=== PATIENT | female | born 1950 | race American Indian/Alaskan Native ===

== ENCOUNTER 2017-12-24 16:51 | Inpatient (IN) | payer OTHER ==
--- NOTE | 2017-12-24 16:59 | PDOC ---
Rapid Medical Evaluation Time Seen by Provider: 12/24/17 16:55 Medical Evaluation: Allergies Allergy/AdvReac Type Severity Reaction Status Date / Time No Known Drug Allergies Allergy Verified 12/24/17 16:54 12/24/17 16:55 I have performed a brief in-person evaluation of this patient. The patient presents with a chief complaint of: Weakness/dizziness w/ n/v, dry mouth and weight loss x 2 weeks. Seen by PMD last week and dx w/ new onset DM, HbA1c 11% per pt. Sent to ED for BG of 500 in office today. Other pmhx are HTN, HLD, ortho surgeries Pertinent physical exam findings:Appears mildly lethargic at triage and tachy I have ordered the following:labs The patient will proceed to the ED for further evaluation 12/24/17 17:05 Discharge Disposition - Diagnosis Hyperglycemia - Referrals - Patient Instructions - Post Discharge Activity
[2017-12-24 17:42] LABS: HEMOGLOBIN 14.1 GM/dL (10.7-15.3); MEAN CELL VOLUME 90.9 fl (80-96); MEAN PLT VOLUME 11.2 fl (7.5-11.1); PLATELET COUNT 389 K/MM3 (134-434); RBC 4.84 M/mm3 (3.60-5.2); RDW 13.3 % (11.6-15.6); WHITE BLOOD COUNT 21.2 K/mm3 (4.0-10.0)
--- NOTE | 2017-12-24 17:50 | PDOC ---
History of Present Illness - General Chief Complaint: Blood Sugar Problem Stated Complaint: BLOOD SUGAR Time Seen by Provider: 12/24/17 16:55 - History of Present Illness Initial Comments: 12/24/17 18:07 67 year old ronald with a hx of HTN and uterine bleeding presents to the hospital after being sent by PCP for blood sugar > 500. She reports that today was the day she was diagnosed with diabetes. Reports ~2 weeks of polyuria, polydipsia. Additionally reports lethargy, sleeping often, and 2 days of nausea/ vomiting. Vomited 5x this morning, last episode at 5am. Patient reports feeling nauseous but hungry. Denies chest pain, shortness of breath, diarrhea, fevers, chills, abdominal pain. Allergies: none Surgical Hx: Pancreatic cyst removed (with part of spleen) Smoke: never Alcohol: never Past History - Past Medical History Allergies/Adverse Reactions: Allergies Allergy/AdvReac Type Severity Reaction Status Date / Time No Known Drug Allergies Allergy Verified 12/24/17 16:54 Home Medications: Ambulatory Orders Aspirin [ASA -] 81 mg PO DAILY 12/05/14 Biotin 1 mg PO DAILY 12/05/14 Calcium 500 mg PO DAILY 12/05/14 Enalapril Maleate [Vasotec -] 20 mg PO DAILY 12/05/14 Fluticasone Prop 0.05% Nasal [Flonase -] 1 - 2 spray NS DAILY PRN 12/05/14 Loratadine [Claritin -] 10 mg PO DAILY 12/05/14 [place]-3 Fatty Acids [Fish Oil] 300 mg PO DAILY 12/05/14 Simvastatin [Zocor -] 20 mg PO HS 12/05/14 Vitamin B Complex 1 each PO DAILY 12/05/14 Ibuprofen [Motrin -] 600 mg PO TID PRN #21 tablet 12/06/14 CVA: Yes (TIA 5 YRS AGO) COPD: No Diabetes: Yes HTN: Yes Hypercholesterolemia: Yes - Surgical History Orthopedic Surgery: Yes (ARTHROSCOPY HOLLY,LEFT SHOULDER SX ROTATOR CUFF) - Suicide/Smoking/Psychosocial Hx Smoking History: Former smoker Have you smoked in the past 12 months: No Information on smoking cessation initiated: No Hx Alcohol Use: No Drug/Substance Use Hx: No Substance Use Type: None Hx Substance Use Treatment: No Review of Systems - Review of Systems Able to Perform ROS?: Yes Constitutional: No: Chills, Fever HEENTM: No: Throat Pain Respiratory: No: Shortness of Breath, Wheezing Cardiac (ROS): No: Lightheadedness, Palpitations ABD/GI: Yes: Constipated, Nausea, Vomiting. No: Diarrhea, Rectal Bleeding Endocrine: Yes: Increased Thirst, Increased Urine *Physical Exam - Vital Signs Last Vital Signs Temp Pulse Resp BP Pulse Ox 98.2 F 110 H 19 155/97 96 12/24/17 16:54 12/24/17 16:54 12/24/17 16:54 12/24/17 16:54 12/24/17 16:54 - Physical Exam Comments: 12/24/17 18:10 GENERAL: A&Ox3, no acute distress, sleepy EYES: PERRLA, EOMI ENT: Dry mucus membranes NECK: No JVD LUNGS: CTA, no wheezes HEART: RRR, no murmurs ABDOMEN: Soft, nontender, BS present MUSCULOSKELETAL: No CVA Tenderness EXTREMITIES: 2+ pulses, no edema. NEUROLOGICAL: Cranial nerves II-XII intact. ED Treatment Course - LABORATORY CBC & Chemistry Diagram: 12/24/17 17:25 12/24/17 17:25 Medical Decision Making - Medical Decision Making 12/24/17 18:11 67 yo female hx HTN, uterine bleeding sent by PCP for newly diagnosed diabetes -cbc, cmp, UA, mag, urine acetone, ekg 12/24/17 18:23 -glucose 496 -anion gap 17 -white count 21.2 likely due to hyperglycemia and ketonemia. -awaiting urine acetone CBC, BMP 12/24/17 17:25 12/24/17 17:25 12/24/17 18:44 -acetone elevated, patient likely in mild DKA -will admit obs to hospitalist - repeat glucose 385 after 5 units *DC/Admit/Observation/Transfer Diagnosis at time of Disposition: Hyperglycemia - Discharge Dispostion Condition at time of disposition: Stable Decision to Admit order: Yes - Referrals Referrals: Alonso Gotti [Primary Care Provider] - - Patient Instructions - Post Discharge Activity
[2017-12-24 17:53] LABS: ALBUMIN 3.5 g/dl (3.4-5.0); ANION GAP 17 (8-16); BLOOD UREA NITROGEN 20 mg/dL (7-18); CHLORIDE 94 mmol/L (98-107); CO2 18 mmol/L (21-32); CREATININE 0.9 mg/dL (0.55-1.02); POTASSIUM 4.9 mmol/L (3.5-5.1); SGOT/AST 34 U/L (15-37); SGPT/ALT 34 U/L (12-78); SODIUM 129 mmol/L (136-145)
[2017-12-24 17:55] LABS: ALK PHOS 119 U/L (45-117); BILIRUBIN,TOTAL 0.8 mg/dL (0.2-1.0); TOT PROT 7.7 g/dl (6.4-8.2)
[2017-12-24 18:18] LABS: GLUCOSE,RANDOM 496 mg/dL (74-106)
[2017-12-24] MEDS ORDERED: SODIUM CHLORIDE 1,000 ML IV STA ×2 (18:30→21:15)
[2017-12-24 18:47] LABS: MACROCYTOSIS 1+; OVALOCYTE 1+; PLATELET ESTIMATE ADEQUATE
--- NOTE | 2017-12-24 18:56 | PDOC ---
Attending Attestation - Resident Resident Name: BlayneEbbeto - ED Attending Attestation I have performed the following: I have examined & evaluated the patient, The case was reviewed & discussed with the resident, I agree w/resident's findings & plan, Exceptions are as noted - HPI HPI: 12/24/17 18:53 67y F hx of htn, borderline DM, of fibroids was following up with your PMD for lab results, was found to have bgm in the 500s and sent to the ED for evaluation. pt was written for insulin by PMD. Pt notes the past few weeks she has felt generally weak and tired. Denies any associated cp, sob, palpitations, fever/chills, n/v, abd pain, back pain, dysuria, hematuria, diarrhea. She does endorse some urinary frequency. pts exam: general: well appearing, NAD HEENT: Dry mMM abd soft nontender card: slightly tachy, no murmers ddx: hyperglycemia vs dka will ck labs ua will reassess - Physicial Exam PE: 12/25/17 03:11 see abve - Medical Decision Making labs cw with weak dka will admit for further mangemtn will treat with boluses inf insulin Heart Score/ECG Review - History History: Highly suspicious - ECG Impressions Comment:: 12/24/17 20:07 Twelve-lead EKG was performed and reviewed by me. There is normal sinus rhythm with a rate of [address] changes suggestive of AMI Impression: sinus tachycardic
[2017-12-24] MEDS ORDERED: ONDANSETRON 4 MG/2 ML VIAL IVPUSH ONE (18:57)
[2017-12-24] MEDS ORDERED: Insulin (LOG) Aspart 100 UNITS/ML VIAL SQ ONE (19:01)
[2017-12-24] MEDS ORDERED: INSULIN (NOVOLOG) ASPART 100 UNITS/ML 10ML VIAL ONE (19:06)
[2017-12-24] MEDS ORDERED: ONDANSETRON 4 MG/2 ML VIAL ONE (19:06)
[2017-12-24 19:43] LABS: URINE APPEARANCE CLEAR; URINE BILIRUBIN NEGATIVE (<2.0 mg/dL); URINE COLOR STRAW; URINE GLUCOSE (UA) 3+ (NEGATIVE); URINE KETONE 1+ (NEGATIVE); URINE LEUK ESTERASE NEGATIVE (NEGATIVE); URINE NITRITE NEGATIVE (NEGATIVE); URINE PROTEIN NEGATIVE (NEGATIVE); URINE UROBILINOGEN NEGATIVE mg/dL (0.2-1.0)
--- NOTE | 2017-12-24 21:17 | PN ---
Teaching Attending Note Name of Resident: Bebeto Gutierrez ATTENDING PHYSICIAN STATEMENT I saw and evaluated the patient. I reviewed the resident's note and discussed the case with the resident. I agree with the resident's findings and plan as documented. SUBJECTIVE: Patient is 67 year old woman with a history of HTN and postmenopausal bleeding sent by PCP to the ER for blood sugar > 500. She reports that today was the day she was diagnosed with diabetes. Reports ~2 weeks of polyuria, polydipsia. Additionally reports lethargy, sleeping often, and 2 days of nausea/vomiting. Vomited 5x this morning, last episode at 5 am. Patient reports feeling nauseous but hungry. Denies chest pain, shortness of breath, diarrhea, fevers, chills, abdominal pain. 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 OBJECTIVE: Alert and in no acute distress Vital Signs Period Temp Pulse Resp BP Sys/Brown Pulse Ox Last 24 Hr 98.2 F 110 19 155/97 96 HEENT: No Jaundice, eye redness or discharge, PERRLA, EOMI. Normocephalic, atraumatic. External ears are normal and hearing is grossly intact. No nasal discharge. Neck: Supple, nontender. No palpable adenopathy or thyromegaly. No JVD Chest: Good effort. Clear to auscultation and percussion. Heart: Regular. No S3, rub or murmur Abdomen: Not distended, soft, mild upper abdominal tenderness; no HSM. No rebound or guarding. Normoactive bowel sounds. Ext: Peripheral pulses intact. No leg edema. Skin: Warm and dry. No petechiae, rash or ecchymosis. Neuro: Alert. Oriented x3. CN 2-12 grossly intact. Sensation grossly intact in all four extremities and DTR are symmetric. Current Medications Generic Name Dose Route Start Last Admin Trade Name Freq PRN Reason Stop Dose Admin Sodium Chloride 1,000 mls @ 1,000 mls/hr 12/24/17 21:15 12/24/17 21:18 Normal Saline - IV 12/24/17 22:14 1,000 mls/hr ASDIR STA Administration Home Medications Medication Instructions Recorded Aspirin [ASA -] 81 mg PO DAILY 12/05/14 Biotin 1 mg PO DAILY 12/05/14 Calcium 500 mg PO DAILY 12/05/14 Enalapril Maleate [Vasotec -] 20 mg PO DAILY 12/05/14 Fluticasone Prop 0.05% Nasal 1 - 2 spray NS DAILY PRN 12/05/14 [Flonase -] Loratadine [Claritin -] 10 mg PO DAILY 12/05/14 [place]-3 Fatty Acids [Fish Oil] 300 mg PO DAILY 12/05/14 Simvastatin [Zocor -] 20 mg PO HS 12/05/14 Vitamin B Complex 1 each PO DAILY 12/05/14 Ibuprofen [Motrin -] 600 mg PO TID PRN #21 tablet 12/06/14 Abnormal Lab Results 12/24/17 12/24/17 12/24/17 17:25 17:25 17:25 WBC 21.2 H MPV 11.2 H D Neutrophils % (Manual) 90.0 H Lymphocytes % (Manual) 5.0 L Monocytes % (Manual) 3 L Sodium 129 L Chloride 94 L Carbon Dioxide 18 L Anion Gap 17 H BUN 20 H Random Glucose 496 H* Alkaline Phosphatase 119 H Urine Glucose (UA) Urine Ketones Acetone, Qual Positive moderate 2+ H 12/24/17 19:25 WBC MPV Neutrophils % (Manual) Lymphocytes % (Manual) Monocytes % (Manual) Sodium Chloride Carbon Dioxide Anion Gap BUN Random Glucose Alkaline Phosphatase Urine Glucose (UA) 3+ H Urine Ketones 1+ H Acetone, Qual ASSESSMENT AND PLAN: 1. New onset DM with hyperglycemic hyperosmolar ketosis - No obvious precipitating factors and denies family history of DM and says she has recently lost 15 lbs - without trying. Will repeat BMP, give her initial dose of IV insulin, continue with sliding scale insulin, IV normal saline and also give her KCL. Monitor BMP to trend metabolic acidosis and initiate intensive diabetes patient education. Importance of foot care and eye care stressed. 2. Hypertension - Will give Vasotec 20 mg bid and add a diuretic later. Importance of excellent BP control and low salt diet stressed. 3. Recurrent constipation and Abdominal pain - Will get abdominal sonogram to evaluate the hepatobiliary tract in view of leukocytosis - though the latter may be post-splenectomy leukocytosis. There is no other evidence of infection despite a left shift - will monitor her closely - no indication for antibiotics at this time. Miralax and Senna for constipation and outpatient colonoscopy to investigate recurrent constipation and weight loss. 4. Hyponatremia - Likely due to hyperglycemia. Will likely improve as hyperglycemia is corrected. 5. DVT prophylaxis - Heparin 5000u sq tid. 6. Advance directives - Full code
[2017-12-25] MEDS ORDERED: INSULIN REGULAR HUMAN 100 UNITS/ML *VIAL IVPUSH ONE (00:01)
[2017-12-25] MEDS ORDERED: SODIUM CHLORIDE 1,000 ML IV SCH (00:15)
[2017-12-25] MEDS ORDERED: PATIENT'S OWN MEDICATION (NON-FORMULARY) (Enalapril Maleate [Vasotec -] 20 MG) PO SCH (00:15)
--- NOTE | 2017-12-25 00:15 | HP ---
CHIEF COMPLAINT: Nausea and vomiting; sent by PCP glucose of 500 PCP: Dr. Owens HISTORY OF PRESENT ILLNESS: 67yo F with history of HTN/HLD, TIA (5 years ago), and pre-diabetes who presents from her PCP's office after a BGM showed 500 for her glucose. Pt reports 2 weeks ago she started having polyuria and polydipsia. Within the past day she experienced nausea and 5 episodes of NB/NB vomiting. When she saw Dr. Owens this morning she was diagnosed with Diabetes Mellitus with an A1c of 11%. Pt currently feels markedly improved and denies any n/v/f/c, headache, SOB, CP/ discomfort, palpitations, and dysuria. 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 Family History: Allergies No Known Drug Allergies Allergy (Verified 12/24/17 16:54) HOME MEDICATIONS: Home Medications Medication Instructions Recorded Aspirin [ASA -] 81 mg PO DAILY 12/05/14 Biotin 1 mg PO DAILY 12/05/14 Calcium 500 mg PO DAILY 12/05/14 Enalapril Maleate [Vasotec -] 20 mg PO DAILY 12/05/14 Fluticasone Prop 0.05% Nasal 1 - 2 spray NS DAILY PRN 12/05/14 [Flonase -] Loratadine [Claritin -] 10 mg PO DAILY 12/05/14 [place]-3 Fatty Acids [Fish Oil] 300 mg PO DAILY 12/05/14 Simvastatin [Zocor -] 20 mg PO HS 12/05/14 Vitamin B Complex 1 each PO DAILY 12/05/14 Ibuprofen [Motrin -] 600 mg PO TID PRN #21 tablet 12/06/14 REVIEW OF SYSTEMS CONSTITUTIONAL: Present: weight change Absent: fever, chills, diaphoresis, generalized weakness, malaise, loss of appetite, HEENT: Absent: rhinorrhea, nasal congestion, throat pain, throat swelling, difficulty swallowing, mouth swelling, ear pain, eye pain, visual changes CARDIOVASCULAR: Absent: chest pain, syncope, palpitations, irregular heart rate, lightheadedness , peripheral edema RESPIRATORY: Absent: cough, shortness of breath, dyspnea with exertion, orthopnea, wheezing, stridor, hemoptysis GASTROINTESTINAL: Present: nausea, vomiting, abdominal pain Absent: Abdominal distension, diarrhea, constipation, melena, hematochezia GENITOURINARY: Present: Polyuria Absent: dysuria, urgency, hesitancy, hematuria, flank pain, genital pain MUSCULOSKELETAL: Absent: myalgia, arthralgia, joint swelling, back pain, neck pain SKIN: Absent: rash, itching, pallor HEMATOLOGIC/IMMUNOLOGIC: Absent: easy bleeding, easy bruising, lymphadenopathy, frequent infections ENDOCRINE: Present: Polydipsia Absent: unexplained weight gain, unexplained weight loss, heat intolerance, cold intolerance NEUROLOGIC: Present: Paresthesias of lower extremities Absent: headache, focal weakness, dizziness, unsteady gait, seizure, mental status changes, bladder or bowel incontinence PSYCHIATRIC: Absent: anxiety, depression, suicidal or homicidal ideation, hallucinations. PHYSICAL EXAMINATION Vital Signs - 24 hr 12/24/17 16:54 Temperature 98.2 F Pulse Rate 110 H Respiratory 19 Rate Blood Pressure 155/97 O2 Sat by Pulse 96 Oximetry (%) GENERAL: NAD, Awake, alert, and fully oriented HEAD: NC/AT EYES: EOMI, sclera anicteric, no scleral injections, Ophthalmoscopic exam w/o any papilledema, hemorrhage of vessels noted. ENT: Normal structures of oropharynx, MMM NECK: No JVD, soft, no lymphadenopathy LUNGS: CTA bilaterally. No wheezes, and no crackles. No accessory muscle use. Room air 96% HEART: Tachycardic with regular rhythm, normal S1 and S2 without murmur ABDOMEN: Soft, nondistended, normoactive BS, slight RUQ tenderness, no guarding , negative Luna's, no rebound, no hepatomegaly via percussion. MUSCULOSKELETAL: No CVA tenderness. EXTREMITIES: 2+ DP pulses, warm, well-perfused. No peripheral edema. NEUROLOGICAL: mathematical engineering technician II-XII intact. Strength 5/5 throughout all oconnell. Sensation to dull sensation still remains intact in all oconnell. Normal speech. Normal gait. PSYCHIATRIC: Cooperative. Good eye contact. Appropriate mood and affect. SKIN: Warm, dry, no rashes or lesions noted Laboratory Results - last 24 hr 12/24/17 12/24/17 12/24/17 17:25 17:25 17:25 WBC 21.2 H RBC 4.84 Hgb 14.1 Hct 44.0 MCV 90.9 MCH 29.0 MCHC 32.0 RDW 13.3 Plt Count 389 MPV 11.2 H D Absolute Neuts (auto) 18.4 Total Counted 100 Neutrophils % No Result Required. Neutrophils % (Manual) 90.0 H Band Neutrophils % 1.0 Lymphocytes % No Result Required. Lymphocytes % (Manual) 5.0 L Monocytes % (Manual) 3 L Basophils % (Manual) 1.0 Nucleated RBC % 0 Differential Comment Man diff performed Platelet Estimate Adequate Platelet Comment Polychromasia 1+ Poikilocytosis 1+ Macrocytosis 1+ Ovalocytes 1+ Sodium 129 L Potassium 4.9 Chloride 94 L Carbon Dioxide 18 L Anion Gap 17 H BUN 20 H Creatinine 0.9 Creat Clearance w eGFR > 60 POC Glucometer Random Glucose 496 H* Calcium 9.0 Total Bilirubin 0.8 AST 34 ALT 34 Alkaline Phosphatase 119 H Total Protein 7.7 Albumin 3.5 Urine Color Urine Appearance Urine pH Ur Specific [place] Urine Protein Urine Glucose (UA) Urine Ketones Urine Blood Urine Nitrite Urine Bilirubin Urine Urobilinogen Ur Leukocyte Esterase Acetone, Qual Positive moderate 2+ H 12/24/17 12/24/17 19:25 20:19 WBC RBC Hgb Hct MCV MCH MCHC RDW Plt Count MPV Absolute Neuts (auto) Total Counted Neutrophils % Neutrophils % (Manual) Band Neutrophils % Lymphocytes % Lymphocytes % (Manual) Monocytes % (Manual) Basophils % (Manual) Nucleated RBC % Differential Comment Platelet Estimate Platelet Comment Polychromasia Poikilocytosis Macrocytosis Ovalocytes Sodium Potassium Chloride Carbon Dioxide Anion Gap BUN Creatinine Creat Clearance w eGFR POC Glucometer [phone] Random Glucose Calcium Total Bilirubin AST ALT Alkaline Phosphatase Total Protein Albumin Urine Color Straw Urine Appearance Clear Urine pH 5.0 D Ur Specific [place] 1.030 Urine Protein Negative Urine Glucose (UA) 3+ H Urine Ketones 1+ H Urine Blood Negative Urine Nitrite Negative Urine Bilirubin Negative Urine Urobilinogen Negative Ur Leukocyte Esterase Negative Acetone, Qual ASSESSMENT/PLAN: 67yo F with history of HTN, HLD, and TIA 5 years ago who presents with new onset DM found to be in a mild hyperglycemic acidosis 1) Mild DKA --Not all criteria seen, however pt has an open anion gap 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 --Uncontrolled DM due to new diagnosis w/o any controlling agents --S/p Novolog 5U in ER --Insulin regular 6 U IV --Stat BMP now and in AM --BGM q1h with insulin being given up until morning --NS+10KCl @100cc/hr (s/p 1LNS) 2) HTN --Most likely due to either uncontrolled on one agent vs. acute state --Increase home Vasotec to 20mg BID (first dose now) --If still elevated in morning can add HCTZ 12.5mg daily --Monitor BP 3) Leukocytosis --Most likely additive causes with leukemoid reaction and possible infection --Bands noted; left-shift noted --RUQ US ordered given tenderness in this area --Monitor for fevers 4) Hyponatremia --2/2 to hyperglycemic state --Corrected is 135 --Fluids as above 5) HLD --Continue home simvastatin 20mg HS 6) New Onset DM --A1c 11% --Informed pt that twice yearly eye examination and podiatric evaluation are advised --Instruct on Insulin injections --Will need to give glucometer, test strips, alcohol pads upon discharge FEN: Fluids: NS+10mEq KCl @ 100cc/hr Electrolyte abnormalities: Hyponatremia as above Nutrition: diabetic diet PPX: DVT - Heparin 5000 U SQ GI - Not indicated currently Dispo: Admit M/S Case discussed with Dr. Judah Gutierrez, DO - IM PGY-1 Visit type - Emergency Visit Emergency Visit: Yes ED Registration Date: 12/25/17 Care time: The patient presented to the Emergency Department on the above date and was hospitalized for further evaluation of their emergent condition. - New Patient This patient is new to me today: Yes Date on this admission: 12/25/17 - Critical Care Critical Care patient: No Hospitalist Screening - Colonoscopy Questionnaire Colonoscopy Questionnaire: Colonoscopy Questionnaire - Patient: 50 - 75 years old and never had a screening colonoscopy: Unknown History of colon or rectal polyps, or CA: Unknown History of IBD, Crohn's disease or UC: Unknown History of abdominal radiation therapy as a child: Unknown - Relative: 1 with colon or rectal CA, or polyps at age 60 or younger: Unknown Colon or rectal CA diagnosed at age 45 or younger: Unknown Multiple relatives with colon or rectal CA: Unknown - Outcome: Screening Result: Negative Screen
[2017-12-25] MEDS ORDERED: SODIUM CHLORIDE 1,000 ML with POTASSIUM CHLORIDE 10 MEQ IVPB SCH (02:00)
[2017-12-25 03:19] LABS: ANION GAP 12 (8-16); BLOOD UREA NITROGEN 16 mg/dL (7-18); CALCIUM 7.9 mg/dL (8.5-10.1); CHLORIDE 102 mmol/L (98-107); CO2 22 mmol/L (21-32); CREATININE 0.6 mg/dL (0.55-1.02); SODIUM 136 mmol/L (136-145)
[2017-12-25 03:20] LABS: GLUCOSE,RANDOM 330 mg/dL (74-106)
[2017-12-25] MEDS: INSULIN SLIDING SCALE (NOVOLOG) 1 VIAL SQ SCH ×3 (06:14→16:46)
[2017-12-25] MEDS: HEPARIN NA (PORCINE) 5,000 UNITS/ML 1ML VIAL SQ SCH ×3 (06:15→21:28)
[2017-12-25] MEDS ORDERED: INSULIN SLIDING SCALE (NOVOLOG) 1 VIAL SQ SCH (07:00)
[2017-12-25 08:05] LABS: ANION GAP 12 (8-16); BLOOD UREA NITROGEN 15 mg/dL (7-18); CALCIUM 7.9 mg/dL (8.5-10.1); CHLORIDE 103 mmol/L (98-107); CO2 22 mmol/L (21-32); CREATININE 0.6 mg/dL (0.55-1.02); GLUCOSE,RANDOM 309 mg/dL (74-106); POTASSIUM 4.3 mmol/L (3.5-5.1); SODIUM 137 mmol/L (136-145)
[2017-12-25 09:25] LABS: HEMATOCRIT 36.9 % (32.4-45.2); HEMOGLOBIN 11.8 GM/dL (10.7-15.3); MCH 29.1 pg (25.7-33.7); MCHC 32.1 g/dl (32.0-36.0); MEAN CELL VOLUME 90.6 fl (80-96); MEAN PLT VOLUME 11.6 fl (7.5-11.1); PLATELET COUNT 321 K/MM3 (134-434); RBC 4.07 M/mm3 (3.60-5.2); RDW 13.3 % (11.6-15.6); WHITE BLOOD COUNT 12.5 K/mm3 (4.0-10.0)
[2017-12-25] MEDS: ENALAPRIL MALEATE 10 MG TABLET (FP) PO SCH ×2 (09:44→21:29)
--- NOTE | 2017-12-25 10:35 | PN ---
Physical Exam: SUBJECTIVE: Patient seen and examined Patient is c/o having constipation, OBJECTIVE: Vital Signs Temperature 98.1 F 12/25/17 06:18 Pulse Rate 92 H 12/25/17 06:18 Respiratory Rate 17 12/25/17 06:18 Blood Pressure 158/82 12/25/17 06:18 O2 Sat by Pulse Oximetry (%) 100 12/25/17 01:02 GENERAL: The patient is awake, alert, and fully oriented, in no acute distress. HEAD: Normal with no signs of trauma. EYES: PERRL, extraocular movements intact, sclera anicteric, conjunctiva clear. ENT: Ears normal, oropharynx clear without exudates, moist mucous membranes. NECK: Trachea midline, full range of motion, supple. LUNGS: Breath sounds equal, clear to auscultation bilaterally, no wheezes, no crackles, no accessory muscle use. HEART: Regular rate and rhythm, S1, S2 without murmur, rub or gallop. ABDOMEN: Soft, nontender, nondistended, normoactive bowel sounds, no guarding, no rebound, no hepatosplenomegaly, no masses. EXTREMITIES: 2+ pulses, warm, well-perfused, no edema. NEUROLOGICAL: Cranial nerves II through XII grossly intact. Normal speech, gait not observed. PSYCH: Normal mood, normal affect. SKIN: Warm, dry, normal turgor, no rashes or lesions noted CBCD WBC 12.5 K/mm3 (4.0-10.0) H 12/25/17 06:15 RBC 4.07 M/mm3 (3.60-5.2) 12/25/17 06:15 Hgb 11.8 GM/dL (10.7-15.3) 12/25/17 06:15 Hct 36.9 % (32.4-45.2) D 12/25/17 06:15 MCV 90.6 fl (80-96) 12/25/17 06:15 MCHC 32.1 g/dl (32.0-36.0) 12/25/17 06:15 RDW 13.3 % (11.6-15.6) 12/25/17 06:15 Plt Count 321 K/MM3 (134-434) 12/25/17 06:15 MPV 11.6 fl (7.5-11.1) H 12/25/17 06:15 CMP Sodium 137 mmol/L (136-145) 12/25/17 06:15 Potassium 4.3 mmol/L (3.5-5.1) 12/25/17 06:15 Chloride 103 mmol/L (98-107) 12/25/17 06:15 Carbon Dioxide 22 mmol/L (21-32) 12/25/17 06:15 Anion Gap 12 (8-16) 12/25/17 06:15 BUN 15 mg/dL (7-18) 12/25/17 06:15 Creatinine 0.6 mg/dL (0.55-1.02) 12/25/17 06:15 Creat Clearance w eGFR > 60 (>60) 12/25/17 06:15 Random Glucose 309 mg/dL (74-106) H* 12/25/17 06:15 Calcium 7.9 mg/dL (8.5-10.1) L 12/25/17 06:15 Total Bilirubin 0.8 mg/dL (0.2-1.0) 12/24/17 17:25 AST 34 U/L (15-37) 12/24/17 17:25 ALT 34 U/L (12-78) 12/24/17 17:25 Alkaline Phosphatase 119 U/L (45-117) H 12/24/17 17:25 Total Protein 7.7 g/dl (6.4-8.2) 12/24/17 17:25 Albumin 3.5 g/dl (3.4-5.0) 12/24/17 17:25 Current Medications Generic Name Dose Route Start Last Admin Trade Name [place] PRN Reason Stop Dose Admin Enalapril Maleate 20 mg 12/25/17 02:00 12/25/17 09:44 Vasotec - PO 20 mg BID KODAK Administration Heparin Sodium (Porcine) 5,000 unit 12/25/17 06:00 12/25/17 06:15 Heparin - SQ 5,000 unit TID KODAK Administration Potassium Chloride 10 meq/ 1,005 mls @ 100 mls/hr 12/25/17 02:00 12/25/17 03: 13 Sodium Chloride IVPB 100 mls/hr ASDIR KODAK Administration Insulin Aspart 1 vial 12/25/17 07:00 12/25/17 06:14 Novolog Vial Sliding Scale - SQ 6 units ACHS KODAK Administration Protocol Home Medications Medication Instructions Recorded Aspirin [ASA -] 81 mg PO DAILY 12/05/14 Biotin 1 mg PO DAILY 12/05/14 Calcium 500 mg PO DAILY 12/05/14 Enalapril Maleate [Vasotec -] 20 mg PO DAILY 12/05/14 Fluticasone Prop 0.05% Nasal 1 - 2 spray NS DAILY PRN 12/05/14 [Flonase -] Loratadine [Claritin -] 10 mg PO DAILY 12/05/14 [place]-3 Fatty Acids [Fish Oil] 300 mg PO DAILY 12/05/14 Simvastatin [Zocor -] 20 mg PO HS 12/05/14 Vitamin B Complex 1 each PO DAILY 12/05/14 Ibuprofen [Motrin -] 600 mg PO TID PRN #21 tablet 12/06/14 ASSESSMENT/PLAN: 67yo F with history of HTN, HLD, and TIA 5 years ago who presents with new onset DM found to be in a mild hyperglycemic acidosis # s/p DKA (patient is no longer in DKA) improved on consulted, on Levemir and SS, check Hemoglobin A1c # HTN continue Vasotec #Acute PsuedoHyponatremia improved , gap is closed # HLD continue home simvastatin 20mg HS DVT Px: Heparin sq Visit type - Emergency Visit Emergency Visit: Yes ED Registration Date: 12/25/17 Care time: The patient presented to the Emergency Department on the above date and was hospitalized for further evaluation of their emergent condition. - New Patient This patient is new to me today: Yes Date on this admission: 12/25/17 - Critical Care Critical Care patient: No - Discharge Referral Referred to [facility] Med [facility] No
[2017-12-25] MEDS ORDERED: ACETAMINOPHEN 325 MG TABLET (FP) PO PRN (11:17)
[2017-12-25] MEDS ORDERED: GLYCERIN 1 RECTAL SUPPOSITORY, ADULT PR ONE (11:18)
[2017-12-25] MEDS: DOCUSATE SODIUM 100 MG CAPSULE (FP) PO SCH ×2 (11:59→21:26)
[2017-12-25 12:49] LABS: MAGNESIUM 1.8 mg/dL (1.8-2.4); PHOSPHOROUS 2.7 mg/dL (2.5-4.9)
[2017-12-25] MEDS: POTASSIUM CHLORIDE 10 MEQ in SODIUM CHLORIDE 1,000 ML IVPB SCH (14:50)
--- NOTE | 2017-12-25 15:00 | CONSULT ---
Consult Consult Specialty:: Endocrinology Referred by:: Dr Franklin Reason for Consultation:: DKA - History of Present Illness Chief Complaint: Hyperglycemia History of Present Illness: This is a 67 y/o F with history of HTN/HLD, TIA (5 years ago), and pre-diabetes who presented to ED from her PCP's office after a BGM showed 500. Pt c/o Wt loss of [id number] lbs in the last month and polyuria,polydipsia and nocturia for the last 2 weeks.. Within the past day she experienced nausea and 5 episodes of NB/NB vomiting. When she saw Dr. Owens this morning she was diagnosed with Diabetes Mellitus with an A1c of 11%. In the hospital pt found to be hyperglycemic with CO2 of 18, A Gap of 17 and moderate Ketones in the urine. Pt was treated with Insulin with improvement in syptoms and resolution of acidosis. Pt currently feels much beter and denies any complaints. - History Source History Provided By: Patient, Medical Record - Alcohol/Substance Use Hx Alcohol Use: No - Smoking History Smoking history: Former smoker Have you smoked in the past 12 months: No Home Medications - Allergies Allergies/Adverse Reactions: Allergies Allergy/AdvReac Type Severity Reaction Status Date / Time No Known Drug Allergies Allergy Verified 12/24/17 16:54 - Home Medications Home Medications: Ambulatory Orders Aspirin [ASA -] 81 mg PO DAILY 12/05/14 Biotin 1 mg PO DAILY 12/05/14 Calcium 500 mg PO DAILY 12/05/14 Enalapril Maleate [Vasotec -] 20 mg PO DAILY 12/05/14 Fluticasone Prop 0.05% Nasal [Flonase -] 1 - 2 spray NS DAILY PRN 12/05/14 Loratadine [Claritin -] 10 mg PO DAILY 12/05/14 Swatara-3 Fatty Acids [Fish Oil] 300 mg PO DAILY 12/05/14 Simvastatin [Zocor -] 20 mg PO HS 12/05/14 Vitamin B Complex 1 each PO DAILY 12/05/14 Ibuprofen [Motrin -] 600 mg PO TID PRN #21 tablet 12/06/14 Family Disease History - Family Disease History Other Family History: No family h/o DM Review of Systems - Review of Systems Constitutional: reports: No Symptoms Eyes: reports: No Symptoms HENT: reports: No Symptoms Neck: reports: No Symptoms Cardiovascular: reports: No Symptoms Respiratory: reports: No Symptoms Gastrointestinal: reports: No Symptoms Genitourinary: reports: No Symptoms Musculoskeletal: reports: No Symptoms Integumentary: reports: No Symptoms Neurological: reports: No Symptoms Endocrine: reports: No Symptoms Physical Exam Vital Signs: Vital Signs Temperature 98.1 F 12/25/17 13:42 Pulse Rate 93 H 12/25/17 13:42 Respiratory Rate 18 12/25/17 13:42 Blood Pressure 135/71 12/25/17 13:42 O2 Sat by Pulse Oximetry (%) 95 12/25/17 09:00 Constitutional: Yes: No Distress, Calm Eyes: Yes: Conjunctiva Clear, EOM Intact HENT: Yes: Atraumatic, Normocephalic Neck: Yes: Supple, Trachea Midline Cardiovascular: Yes: Regular Rate and Rhythm Respiratory: Yes: Regular, CTA Bilaterally Gastrointestinal: Yes: Normal Bowel Sounds, Soft Musculoskeletal: Yes: WNL Extremities: Yes: WNL Edema: No Neurological: Yes: Alert, Oriented Labs: CBC, BMP 12/25/17 06:15 12/25/17 06:15 Imaging - Results Chest X-ray: Report Reviewed Ultrasound: Report Reviewed Assessment/Plan AP: New Onset DM Mild DKA Diet exercise discussed Diabetes education done NUtrition consult BGM QACHS Levemir 12 units stat and daily Novolg coverage ACHS As pt presented with acidosis, will need to do w/u to determine if she is type 1 or 2 . Should be discharged on Insulin and decision on as to if Insulin may be discontinue will be made after results of w/u if available. The same discussed with pt. Will f/u
[2017-12-25] MEDS ORDERED: INSULIN (LEVEMIR) 100 UNITS/ML UNITS SQ ONE ×2 (15:05→17:34)
[2017-12-25] MEDS ORDERED: INSULIN (NOVOLOG) ASPART 100 UNITS/ML 10ML VIAL ONE ×2 (17:35→20:30)
[2017-12-25] MEDS ORDERED: PT OWN MED DRAWER 7, Y5N ONE (21:25)
[2017-12-25] MEDS: POLYETHYLENE GLYCOL 3350 119 GM BTL PO SCH (21:28)
[2017-12-25] MEDS ORDERED: NAPROXEN 500 MG TABLET (FP) PO ONE (22:00)
[2017-12-25] MEDS ORDERED: Insulin (LOG) Aspart 100 UNITS/ML VIAL SQ SCH (22:00)
[2017-12-26] MEDS: POTASSIUM CHLORIDE 10 MEQ in SODIUM CHLORIDE 1,000 ML IVPB SCH ×2 (01:55)
[2017-12-26] MEDS: INSULIN SLIDING SCALE (NOVOLOG) 1 VIAL SQ SCH ×2 (06:35→11:53)
[2017-12-26] MEDS: HEPARIN NA (PORCINE) 5,000 UNITS/ML 1ML VIAL SQ SCH (06:45)
[2017-12-26] MEDS ORDERED: INSULIN (NOVOLOG) ASPART 100 UNITS/ML 10ML VIAL ONE ×2 (06:46→11:51)
[2017-12-26] MEDS ORDERED: INSULIN (LEVEMIR) 100 UNITS/ML UNITS SQ SCH (07:00)
[2017-12-26 08:51] LABS: EOS % 2.8 % (0-4.5); HEMATOCRIT 33.7 % (32.4-45.2); HEMOGLOBIN 11.2 GM/dL (10.7-15.3); LYMPH % 42.1 % (8-40); MCH 29.8 pg (25.7-33.7); MCHC 33.2 g/dl (32.0-36.0); MEAN CELL VOLUME 89.9 fl (80-96); MEAN PLT VOLUME 11.1 fl (7.5-11.1); MONO % 9.6 % (3.8-10.2); NEUT % 44.5 % (42.8-82.8); PLATELET COUNT 294 K/MM3 (134-434); RBC 3.75 M/mm3 (3.60-5.2); RDW 13.6 % (11.6-15.6); WHITE BLOOD COUNT 9.5 K/mm3 (4.0-10.0)
[2017-12-26 09:38] LABS: MAGNESIUM 1.7 mg/dL (1.8-2.4); PHOSPHOROUS 2.4 mg/dL (2.5-4.9)
[2017-12-26] MEDS: ENALAPRIL MALEATE 10 MG TABLET (FP) PO SCH (10:28)
[2017-12-26] MEDS: DOCUSATE SODIUM 100 MG CAPSULE (FP) PO SCH (10:29)
[2017-12-26] MEDS: POLYETHYLENE GLYCOL 3350 119 GM BTL PO SCH (10:29)
[2017-12-26 10:35] LABS: ANION GAP 10 (8-16); BLOOD UREA NITROGEN 9 mg/dl (7-18); CALCIUM 7.9 mg/dl (8.4-10.2); CHLORIDE 108 mmol/L (98-107); CO2 22 mmol/L (22-28); CREATININE 0.5 mg/dl (0.6-1.3); GLUCOSE,RANDOM 229 mg/dl (74-106); SODIUM 140 mmol/L (136-145)
[2017-12-26 10:36] LABS: ALBUMIN 2.7 g/dl (3.5-5.0); ALK PHOS 94 U/L (32-92); BILIRUBIN,TOTAL 0.6 mg/dl (0.2-1.0); SGOT/AST 14 U/L (10-42); SGPT/ALT 20 U/L (10-40); TOT PROT 5.5 g/dl (6.4-8.3)
[2017-12-26] MEDS ORDERED: NAPH,MB-DB/K PH,MBDB POWDER PACKET PO ONE (11:09)
[2017-12-26] MEDS ORDERED: MAGNESIUM OXIDE 400 MG TABLET (FP) PO ONE (11:09)
[2017-12-26] MEDS ORDERED: SODIUM PHOSPHATE/NA BIPHOS 133 ML ENEMA PR ONE (12:02)
--- NOTE | 2017-12-26 12:03 | DS ---
Addendum entered and electronically signed by Gordo Urena, RESIDENT 12/26/17 12:38: instructions Follow up with your PCP Dr Gupta. Follow up with it quality assurance analyst Dr. Taylor Gutierrez with in one week. Call his office to make appointment. Take insulin Glargine 12 unit in evening Take Novalog insulin 6 unit with meal. we had sent your prescription for insulin, glucometer to your [facility] pharmacy in [place] [address] Nurse have taught you how to use insulin. Check your blood sugar three times a day and make a log of it. present log to your PCP or it quality assurance analyst it will help them to adjust your insulin and medicines. Eat a diet as explained by firearms instructor to you. For now we had stopped your insulin lispro and Tablet metformin. Follow up with your pcp and it quality assurance analyst for that if they want to restart it. Take all other medicines as you were taking it before. You need to have annual eye exam. You need to have regular follow up with industrial gas servicer supervisor. Take all the medicines as you were taking it before. Original Note: Physical Exam: SUBJECTIVE: Patient seen and examined OBJECTIVE: Vital Signs Period Temp Pulse Resp BP Sys/Brown Pulse Ox Last 24 Hr 97.0 F-98.1 F 62-93 18-20 109-144/63-95 95-98 PHYSICAL EXAM GENERAL: NAD, Awake, alert, and fully oriented , ENT: Normal structures of oropharynx, MMM NECK: No JVD, soft, no lymphadenopathy LUNGS: CTA bilaterally. No wheezes, and no crackles. No accessory muscle use. HEART: Tachycardic with regular rhythm, normal S1 and S2 without murmur ABDOMEN: Soft, nondistended, normoactive BS, no guarding, MUSCULOSKELETAL: No CVA tenderness. EXTREMITIES: 2+ DP pulses, warm, well-perfused. No peripheral edema. NEUROLOGICAL: automatic packer operator II-XII intact. Strength 5/5 throughout all oconnell. normal gait, sensation to touct b/l lower limb normal PSYCHIATRIC: Cooperative. Good eye contact. Appropriate mood and affect. SKIN: Warm, dry,= LABS Laboratory Results - last 24 hr 12/25/17 12/25/17 12/25/17 02:00 12:02 16:44 WBC RBC Hgb Hct MCV MCH MCHC RDW Plt Count MPV Absolute Neuts (auto) Neutrophils % Lymphocytes % Monocytes % Eosinophils % Basophils % Nucleated RBC % Sodium Potassium Chloride Carbon Dioxide Anion Gap BUN Creatinine Creat Clearance w eGFR POC Glucometer 342 304 Random Glucose Hemoglobin A1c % Calcium Phosphorus 2.7 Magnesium 1.8 Total Bilirubin AST ALT Alkaline Phosphatase Total Protein Albumin TSH 12/25/17 12/26/17 12/26/17 21:19 06:13 07:00 WBC RBC Hgb Hct MCV MCH MCHC RDW Plt Count MPV Absolute Neuts (auto) Neutrophils % Lymphocytes % Monocytes % Eosinophils % Basophils % Nucleated RBC % Sodium 140 Potassium 4.0 Chloride 108 H Carbon Dioxide 22 Anion Gap 10 BUN 9 Creatinine 0.5 L Creat Clearance w eGFR > 60 POC Glucometer 344 251 Random Glucose 229 H Hemoglobin A1c % Calcium 7.9 L Phosphorus 2.4 L Magnesium 1.7 L Total Bilirubin 0.6 AST 14 ALT 20 Alkaline Phosphatase 94 H Total Protein 5.5 L Albumin 2.7 L TSH 1.28 12/26/17 12/26/17 07:00 07:00 WBC 9.5 RBC 3.75 Hgb 11.2 Hct 33.7 MCV 89.9 MCH 29.8 MCHC 33.2 RDW 13.6 Plt Count 294 MPV 11.1 Absolute Neuts (auto) 4.2 Neutrophils % 44.5 D Lymphocytes % 42.1 H D Monocytes % 9.6 Eosinophils % 2.8 Basophils % 1.0 Nucleated RBC % 0 Sodium Potassium Chloride Carbon Dioxide Anion Gap BUN Creatinine Creat Clearance w eGFR POC Glucometer Random Glucose Hemoglobin A1c % 11.4 H Calcium Phosphorus Magnesium Total Bilirubin AST ALT Alkaline Phosphatase Total Protein Albumin TSH HOSPITAL COURSE: 67 year old ronald with a hx of HTN and uterine bleeding presents to the hospital after being sent by PCP for blood sugar > 500. She reports that today was the day she was diagnosed with diabetes. Reports ~2 weeks of polyuria, polydipsia. Additionally reports lethargy, sleeping often, and 2 days of nausea/vomiting. Vomited 5x this morning, last episode at 5am. Patient reports feeling nauseous but hungry. Denies chest pain, shortness of breath, diarrhea, fevers, chills, abdominal pain. In hospital you are treated for hyperglycemia with dka. Insole Coverer was consulted and you were started on levemir 12 unit and novalog as sldiing scale. Hba1c is 11.4. You sugar levels improved with insulin. Mixer Operator was consulted to teach you about diabetic diet. Nausea, vomiting improved as sugar level improved . Now you are tolerating orally. you already have all the meds and glucometer in home as they were prescribed by your pcp. You are discharged in stable condition with instructions to follow up with your pcp and it quality assurance analyst with in one week. Instructions. Follow up with your PCP Dr Gupta. Follow up with it quality assurance analyst Dr. Taylor Gutierrez with in one week. Call his office to make appointment. Take insulin Glargine 12 unit in evening Take Novalog insulin 6 unit with meal. Nurse have taught you how to use insulin. Check your blood sugar three times a day and make a log of it. present log to your PCP or it quality assurance analyst it will help them to adjust your insulin and medicines. Eat a diet as explained by firearms instructor to you. You told us and showed in your phone that you have insulin glargine, novalog, lispro and metformin in home and you also have glucometer and strips as prescribed by your PCP. For now we had stopped your insulin lispro and Tablet metformin. Follow up with your pcp and it quality assurance analyst for that if they want to restart it. Take all other medicines as you were taking it before. You need to have annual eye exam. You need to have regular follow up with industrial gas servicer supervisor. Take all the medicines as you were taking it before. If you develop nausea, vomiting, blood sugar is high then contact your doctor or go to hospital. Date of Admission:12/25/17 Date of Discharge: 12/26/17 Minutes to complete discharge: 45 <Gordo Urena - Last Filed: 12/26/17 12:14> Physical Exam: Patient is comfortable with no acute distress. BS is better controlled now, patient will follow with , patient is being discharged with Lantus 12 units and Novolog 6 units Tid with meals, continue rest of meds. Diet exercise discussed Diabetes education done NUtrition consult BGM QACHS Lantus 12 units daily in the morning Novolog 6 units TID with meals As pt presented with acidosis, will need to do w/u to determine if she is type 1 or 2 . Discussed with patient the need to be on Insulin until w/u is completed. She should continue to take Insulin as prescribed to control blood sugar and prevent DKA. Pt to f/u with PCP and Endocrinology on discharge for further w/u and management. Vital Signs Temperature 98.5 F 12/26/17 14:58 Pulse Rate 85 12/26/17 14:58 Respiratory Rate 18 12/26/17 14:58 Blood Pressure 145/86 12/26/17 14:58 O2 Sat by Pulse Oximetry (%) 98 12/26/17 09:00 CBCD WBC 9.5 K/mm3 (4.0-10.0) 12/26/17 07:00 RBC 3.75 M/mm3 (3.60-5.2) 12/26/17 07:00 Hgb 11.2 GM/dL (10.7-15.3) 12/26/17 07:00 Hct 33.7 % (32.4-45.2) 12/26/17 07:00 MCV 89.9 fl (80-96) 12/26/17 07:00 MCHC 33.2 g/dl (32.0-36.0) 12/26/17 07:00 RDW 13.6 % (11.6-15.6) 12/26/17 07:00 Plt Count 294 K/MM3 (134-434) 12/26/17 07:00 MPV 11.1 fl (7.5-11.1) 12/26/17 07:00 CMP Sodium 140 mmol/L (136-145) 12/26/17 07:00 Potassium 4.0 mmol/L (3.5-5.1) 12/26/17 07:00 Chloride 108 mmol/L (98-107) H 12/26/17 07:00 Carbon Dioxide 22 mmol/L (22-28) 12/26/17 07:00 Anion Gap 10 (8-16) 12/26/17 07:00 BUN 9 mg/dl (7-18) 12/26/17 07:00 Creatinine 0.5 mg/dl (0.6-1.3) L 12/26/17 07:00 Creat Clearance w eGFR > 60 (>60) 12/26/17 07:00 Random Glucose 229 mg/dl (74-106) H 12/26/17 07:00 Calcium 7.9 mg/dl (8.4-10.2) L 12/26/17 07:00 Total Bilirubin 0.6 mg/dl (0.2-1.0) 12/26/17 07:00 AST 14 U/L (10-42) 12/26/17 07:00 ALT 20 U/L (10-40) 12/26/17 07:00 Alkaline Phosphatase 94 U/L (32-92) H 12/26/17 07:00 Total Protein 5.5 g/dl (6.4-8.3) L 12/26/17 07:00 Albumin 2.7 g/dl (3.5-5.0) L 12/26/17 07:00 Current Medications Generic Name Dose Route Start Last Admin Trade Name Freq PRN Reason Stop Dose Admin Acetaminophen 650 mg 12/25/17 11:17 12/25/17 11:59 Tylenol - PO 650 mg Q6H PRN Administration PAIN Docusate Sodium 100 mg 12/25/17 11:30 12/26/17 10:29 Colace - PO 100 mg BID KODAK Administration Enalapril Maleate 20 mg 12/25/17 02:00 12/26/17 10:28 Vasotec - PO 20 mg BID KODAK Administration Heparin Sodium (Porcine) 5,000 unit 12/25/17 06:00 12/26/17 06:45 Heparin - SQ Not Given TID [facility] Potassium Chloride 10 meq/ 1,005 mls @ 100 mls/hr 12/25/17 13:19 12/26/17 01: 55 Sodium Chloride IVPB 100 mls/hr Q10H KODAK Administration Insulin Aspart 0 units 12/25/17 22:00 12/25/17 21:29 Novolog SQ 4 units HS [facility] Administration Protocol Insulin Aspart 1 vial 12/25/17 16:30 12/26/17 11:53 Novolog Vial Sliding Scale - SQ 6 units TIDAC [facility] Administration Protocol Insulin Detemir 12 units 12/26/17 07:00 12/26/17 06:28 Levemir Vial SQ 12 units AM [facility] Administration Polyethylene Glycol 17 gm 12/25/17 22:00 12/26/17 10:29 Miralax (For Daily Use) - PO 17 gm BID [facility] Administration Home Medications Medication Instructions Recorded Aspirin [ASA -] 81 mg PO DAILY 12/05/14 Biotin 1 mg PO DAILY 12/05/14 Calcium 500 mg PO DAILY 12/05/14 Enalapril Maleate [Vasotec -] 20 mg PO DAILY 12/05/14 Loratadine [Claritin -] 10 mg PO DAILY 12/05/14 Powderly-3 Fatty Acids [Fish Oil] 300 mg PO DAILY 12/05/14 Simvastatin [Zocor -] 20 mg PO HS 12/05/14 Vitamin B Complex 1 each PO DAILY 12/05/14 Alcohol Antiseptic Pads [Alcohol 1 each TP TID #120 med..pad 12/26/17 Swabs] Docusate Sodium [Colace -] 100 mg PO BID #30 capsule 12/26/17 Insulin Aspart [Novolog Flexpen] 6 units SQ ACHS #1 insuln.pen 12/26/17 Insulin Glargine,Hum.rec.anlog 12 units SQ HS #1 ins 12/26/17 [Lantus Solostar PEN -] Lancets 1 each MC TID #120 each 12/26/17 Miscellaneous Medical Supply 1 each ASDIR #1 kit 12/26/17 [Glucometer Device] Miscellaneous Medical Supply 1 each ASDIR #1 box 12/26/17 [Glucometer Test Strips #100] Polyethylene Glycol 3350 [Miralax 17 gm PO BID #1 bottle 12/26/17 119 gm Btl -] Syringe and Needle,Insulin,1Ml 1 each MC TID #120 disp.syrin 12/26/17 [Insulin Syringe] <Aram Franklin - Last Filed: 12/26/17 15:05> Discharge Summary Reason For Visit: DIABETIC KETOACIDOSIS Current Active Problems Hyperglycemia (Acute) - Home Medications Comprehensive Discharge Medication List: Ambulatory Orders Aspirin [ASA -] 81 mg PO DAILY 12/05/14 Biotin 1 mg PO DAILY 12/05/14 Calcium 500 mg PO DAILY 12/05/14 Enalapril Maleate [Vasotec -] 20 mg PO DAILY 12/05/14 Loratadine [Claritin -] 10 mg PO DAILY 12/05/14 Powderly-3 Fatty Acids [Fish Oil] 300 mg PO DAILY 12/05/14 Simvastatin [Zocor -] 20 mg PO HS 12/05/14 Vitamin B Complex 1 each PO DAILY 12/05/14 Docusate Sodium [Colace -] 100 mg PO BID #30 capsule 12/26/17 Insulin Aspart [Novolog Flexpen] 6 units SQ ACHS 12/26/17 Insulin Glargine,Hum.rec.anlog [Lantus Solostar PEN -] 12 units SQ HS 12/26/17 Polyethylene Glycol 3350 [Miralax 119 gm Btl -] 17 gm PO BID #1 bottle 12/26/17 <Gordo Urena - Last Filed: 12/26/17 12:14> Current Active Problems Hyperglycemia (Acute) - Home Medications Comprehensive Discharge Medication List: Ambulatory Orders Aspirin [ASA -] 81 mg PO DAILY 12/05/14 Biotin 1 mg PO DAILY 12/05/14 Calcium 500 mg PO DAILY 12/05/14 Enalapril Maleate [Vasotec -] 20 mg PO DAILY 12/05/14 Loratadine [Claritin -] 10 mg PO DAILY 12/05/14 Powderly-3 Fatty Acids [Fish Oil] 300 mg PO DAILY 12/05/14 Simvastatin [Zocor -] 20 mg PO HS 12/05/14 Vitamin B Complex 1 each PO DAILY 12/05/14 Alcohol Antiseptic Pads [Alcohol Swabs] 1 each TP TID #120 med..pad 12/26/17 Docusate Sodium [Colace -] 100 mg PO BID #30 capsule 12/26/17 Insulin Aspart [Novolog Flexpen] 6 units SQ ACHS #1 insuln.pen 12/26/17 Insulin Glargine,Hum.rec.anlog [Lantus Solostar PEN -] 12 units SQ HS #1 ins Lancets 1 each MC TID #120 each 12/26/17 Miscellaneous Medical Supply [Glucometer Device] 1 each ASDIR #1 kit Miscellaneous Medical Supply [Glucometer Test Strips #100] 1 each ASDIR #1 box 12/26/17 Polyethylene Glycol 3350 [Miralax 119 gm Btl -] 17 gm PO BID #1 bottle 12/26/17 Syringe and Needle,Insulin,1Ml [Insulin Syringe] 1 each MC TID #120 disp.syrin 12/26/17 <Aram Franklin - Last Filed: 12/26/17 15:05> Condition: Stable - Instructions Diet, Activity, Other Instructions: Follow up with your PCP Dr Gupta. Follow up with it quality assurance analyst Dr. Taylor Gutierrez with in one week. Call his office to make appointment. Take insulin Glargine 12 unit in evening Take Novalog insulin 6 unit with meal. we had sent your prescription for insulin, glucometer to your [facility] pharmacy. Nurse have taught you how to use insulin. Check your blood sugar three times a day and make a log of it. present log to your PCP or it quality assurance analyst it will help them to adjust your insulin and medicines. Eat a diet as explained by firearms instructor to you. For now we had stopped your insulin lispro and Tablet metformin. Follow up with your pcp and it quality assurance analyst for that if they want to restart it. Take all other medicines as you were taking it before. You need to have annual eye exam. You need to have regular follow up with industrial gas servicer supervisor. Take all the medicines as you were taking it before. Hba1c 11.4 If you develop nausea, vomiting, blood sugar is high then contact your doctor or go to hospital. Referrals: Alonso Gotti [Primary Care Provider] - Brenad Hudson MD [Staff Physician] - 1 Week Disposition: HOME This patient is new to me today: Yes Date on this admission: 12/26/17 Emergency Visit: Yes ED Registration Date: 12/25/17 Care time: The patient presented to the Emergency Department on the above date and was hospitalized for further evaluation of their emergent condition. Critical Care patient: No - Discharge Referral Referred to [facility] Med P.C.: No <Gordo Urena - Last Filed: 12/26/17 12:14>
--- NOTE | 2017-12-26 12:29 | PN ---
Progress Note (short form) - Note Progress Note: Feels good Denies any complaints Vital Signs Period Temp Pulse Resp BP Sys/Brown Pulse Ox Last 24 Hr 97.0 F-98.1 F 62-93 18-20 109-144/63-95 95-98 PE: AOx3 Neck: Supple, No JVD HEENT: PERRL, EOMI Lungs: CTA CVS: S1S2 Abd: Benign Ext: No edema Neuro: No focal deficit CMP Sodium 140 mmol/L (136-145) 12/26/17 07:00 Potassium 4.0 mmol/L (3.5-5.1) 12/26/17 07:00 Chloride 108 mmol/L (98-107) H 12/26/17 07:00 Carbon Dioxide 22 mmol/L (22-28) 12/26/17 07:00 Anion Gap 10 (8-16) 12/26/17 07:00 BUN 9 mg/dl (7-18) 12/26/17 07:00 Creatinine 0.5 mg/dl (0.6-1.3) L 12/26/17 07:00 Creat Clearance w eGFR > 60 (>60) 12/26/17 07:00 POC Glucometer 269 UNITS (80-120) 12/26/17 11:49 Random Glucose 229 mg/dl (74-106) H 12/26/17 07:00 Hemoglobin A1c % 11.4 % (4.8-6.0) H 12/26/17 07:00 Calcium 7.9 mg/dl (8.4-10.2) L 12/26/17 07:00 Phosphorus 2.4 mg/dL (2.5-4.9) L 12/26/17 07:00 Magnesium 1.7 mg/dL (1.8-2.4) L 12/26/17 07:00 Total Bilirubin 0.6 mg/dl (0.2-1.0) 12/26/17 07:00 AST 14 U/L (10-42) 12/26/17 07:00 ALT 20 U/L (10-40) 12/26/17 07:00 Alkaline Phosphatase 94 U/L (32-92) H 12/26/17 07:00 Total Protein 5.5 g/dl (6.4-8.3) L 06/24/18 07:00 Albumin 2.7 g/dl (3.5-5.0) L 12/26/17 07:00 TSH 1.28 uIU/ml (0.358-3.74) 12/26/17 07:00 Current Medications Generic Name Dose Route Start Last Admin Trade Name Freq PRN Reason Stop Dose Admin Acetaminophen 650 mg 12/25/17 11:17 12/25/17 11:59 Tylenol - PO 650 mg Q6H PRN Administration PAIN Docusate Sodium 100 mg 12/25/17 11:30 12/26/17 10:29 Colace - PO 100 mg BID KODAK Administration Enalapril Maleate 20 mg 12/25/17 02:00 12/26/17 10:28 Vasotec - PO 20 mg BID KODAK Administration Heparin Sodium (Porcine) 5,000 unit 12/25/17 06:00 12/26/17 06:45 Heparin - SQ Not Given TID [facility] Potassium Chloride 10 meq/ 1,005 mls @ 100 mls/hr 12/25/17 13:19 12/26/17 01: 55 Sodium Chloride IVPB 100 mls/hr Q10H KODAK Administration Insulin Aspart 0 units 12/25/17 22:00 12/25/17 21:29 Novolog SQ 4 units HS KODAK Administration Protocol Insulin Aspart 1 vial 12/25/17 16:30 12/26/17 11:53 Novolog Vial Sliding Scale - SQ 6 units TIDAC KODAK Administration Protocol Insulin Detemir 12 units 12/26/17 07:00 12/26/17 06:28 Levemir Vial SQ 12 units AM KODAK Administration Polyethylene Glycol 17 gm 12/25/17 22:00 12/26/17 10:29 Miralax (For Daily Use) - PO 17 gm BID KODAK Administration AP: New Onset DM Mild DKA Diet exercise discussed Diabetes education done NUtrition consult BGM QACHS Lantus 12 units daily in the morning Novolog 6 units TID with meals As pt presented with acidosis, will need to do w/u to determine if she is type 1 or 2 . Discussed with patient the need to be on Insulin until w/u is completed. She should continue to take Insulin as prescribed to control blood sugar and prevent DKA. Pt to f/u with PCP and Endocrinology on discharge for further w/u and management.
[2017-12-26 12:34] VITALS: BMI 32.8
[2017-12-26 14:59] VITALS: BP 145/86; PULSE 85; TEMP 98.5
--- NOTE | 2017-12-27 21:58 | EKG ---
Test Reason : Blood Pressure : / mmHG Vent. Rate : 102 BPM Atrial Rate : 102 BPM P-R Int : 138 ms QRS Dur : 084 ms QT Int : 350 ms P-R-T Axes : 049 -21 009 degrees QTc Int : 456 ms SINUS TACHYCARDIA MODERATE VOLTAGE CRITERIA FOR LVH, MAY BE NORMAL VARIANT BORDERLINE ECG NO PREVIOUS ECGS AVAILABLE Confirmed by ROYCE FELIZ, JESÚS ([id number]) on 12/27/2017 9:58:06 PM Referred By: Confirmed By:JESÚS CRANE MD
== END 2017-12-26 15:14 | disposition home or self-care (01) | DRG 638 ==
LOC: EDBD 16:51 → JER 16:51 → JERBED 21:10 → OBSVTOIN 12-25 00:02 → J5S 12-25 01:31
PROVIDERS: ADMIT Internal Medicine; ATTEND Internal Medicine
DX: E11.10 Type 2 diabetes mellitus with ketoacidosis without coma (principal); E87.1 Hypo-osmolality and hyponatremia; E11.65 Type 2 diabetes mellitus with hyperglycemia; I10 Essential (primary) hypertension; Z87.891 Personal history of nicotine dependence; D25.9 Leiomyoma of uterus, unspecified; K59.00 Constipation, unspecified; E78.5 Hyperlipidemia, unspecified; Z86.73 Personal history of transient ischemic attack (TIA), and cerebral infarction without residual deficits; D72.829 Elevated white blood cell count, unspecified
CPT/HCPCS: 36415; 71045-TC-FY; 76705-TC; 80048; 80053; 81003; 82009; 82962; 83036; 83735; 84100; 84443; 85025; 85027; 87086; 93005; 93010; 99284-25; G0378; J1644; J7030